=== PATIENT | female | born 1985 | race Two or more races ===

== ENCOUNTER → 2019-02-22 | Outpatient (REF) | payer OTHER | LOC: M SFHCLERA 09:55 | PROVIDERS: ATTEND Nurse Practitioner Family | DX: J02.9 Acute pharyngitis, unspecified (principal) ==

== ENCOUNTER → 2019-05-13 | Outpatient (REF) | LOC: M LAB 15:03 | PROVIDERS: ATTEND Nurse Practitioner Adult Health | DX: Z02.9 Encounter for administrative examinations, unspecified (principal) ==

== ENCOUNTER 2019-07-12 13:20 | Emergency (ER) | payer OTHER ==
[~2019-07-12] VITALS: Ht 157.5 cm; Wt 56.0 kg
[2019-07-12 13:20] VITALS: BP 107/63
[2019-07-12] MEDS ORDERED: ALL10TAB29 PO (13:43)
[2019-07-12] MEDS ORDERED: AUGM875T28 PO (13:59)
[2019-07-12] MEDS ORDERED: CLAR5TAB7 PO (13:59)
== END 2019-07-12 14:08 | disposition home or self-care (01) ==
LOC: M ED 13:20
DX: J01.90 Acute sinusitis, unspecified (principal); Z85.6 Personal history of leukemia; Z79.899 Other long term (current) drug therapy

== ENCOUNTER → 2020-07-14 | Outpatient (CLI) | payer OTHER ==
[~2020-07-14] MED LIST: AUGM875T28 PO; CETI-24 PO; CLAR5TAB7 PO
[2020-07-14 14:19] LABS: HEMATOCRIT 36.9 % (36.0-47.0); HEMOGLOBIN 12.1 g/dl (12.0-15.5); MEAN CORPUSCULAR HEMOGLOBIN 32.4 pg (27.0-33.0); MEAN CORPUSCULAR HGB CONC 32.8 g/dl (32.0-36.5); MEAN CORPUSCULAR VOLUME 98.9 fl (80.0-96.0); PLATELET COUNT, AUTOMATED 276 10^3/uL (150-450); RED BLOOD COUNT 3.73 10^6/uL (4.00-5.40)
[2020-07-14 14:22] LABS: WHITE BLOOD COUNT 9.8 10^3/uL (4.0-10.0)
[2020-07-14 14:59] LABS: ALBUMIN 4.1 GM/DL (3.2-5.2); ALT/SGPT 40 U/L (12-78); BILIRUBIN,TOTAL 0.3 MG/DL (0.2-1.0); BLOOD UREA NITROGEN 12 MG/DL (7-18); CALCIUM LEVEL 9.2 MG/DL (8.5-10.1); CARBON DIOXIDE LEVEL 30 MEQ/L (21-32); CHLORIDE LEVEL 106 MEQ/L (98-107); CREATININE FOR GFR 0.68 MG/DL (0.55-1.30); GLOMERULAR FILTRATION RATE > 60.0 (>60); GLUCOSE, FASTING 112 MG/DL (70-100); POTASSIUM SERUM 3.8 MEQ/L (3.5-5.1); SODIUM LEVEL 142 MEQ/L (136-145); TOTAL PROTEIN 7.2 GM/DL (6.4-8.2)
[2020-07-14 15:46] LABS: ATYPICAL LYMPH 7 % (0-5); BASOPHILS 1 % (0-1); EOSINOPHILS 2 % (0-3); LYMPHOCYTES 55 % (16-44); MONOCYTES 3 % (0-5); NEUTROPHILS 32 % (28-66); PLATELET ESTIMATE NORMAL (NORMAL)
== END ==
LOC: M LAB 13:36
PROVIDERS: ATTEND Physician Assistant
DX: J06.9 Acute upper respiratory infection, unspecified (principal); Z85.6 Personal history of leukemia

== ENCOUNTER → 2021-03-01 | Outpatient (CLI) | payer OTHER ==
[~2021-03-01] MED LIST changes: +CALC1TAB42 PO; +VITA500C24 PO; +[UNRECOGNIZED DRUG - OTHER] PO
--- NOTE | 2021-03-01 14:53 | REP ---
INDICATION: ENCOUNTER FOR SCREENING FOR RESPIRATORY TUBERCULOSIS. COMPARISON: None. TECHNIQUE: PA and lateral FINDINGS: The superior mediastinal structures are midline. The cardiac silhouette is unremarkable in size, shape, and position. The diaphragmatic surfaces of the lungs are regular, and the costophrenic angles are clear. The pulmonary salgado are clear. The imaged osseous structures are intact. Cardiomediastinal silhouette is within normal limits. There appear to be some bullous emphysematous changes in the lung apical regions. There is no evidence of a cavitary lesion or solid nodule. Lung salgado are somewhat hyperexpanded. The osseous structures are within normal limits. IMPRESSION: Evidence to suggest bullous emphysematous changes in the upper lung salgado as described above, however, there are no priors for comparison. CT examination the chest is recommended. <Electronically signed by Raimundo Spears > 03/01/21 [id number]
== END ==
LOC: M RAD 14:25
PROVIDERS: ATTEND Physician Assistant
DX: Z11.1 Encounter for screening for respiratory tuberculosis (principal); R91.8 Other nonspecific abnormal finding of lung field

== ENCOUNTER → 2021-03-29 | Outpatient (CLI) | payer OTHER ==
--- NOTE | 2021-03-29 09:28 | REP ---
INDICATION: ABN FINDINGS. COMPARISON: Chest x-ray 03/01/2021 TECHNIQUE: Noncontrast CT with coronal and sagittal reconstructions. FINDINGS: Lung salgado are hyperinflated. There is some curvilinear peripheral fibrotic appearance in the anterior segment right upper lobe. This slightly elevates the right hilum. There are cylindrical bronchiectatic changes throughout the lungs. Some curvilinear fibrotic change also seen in the medial segment right middle lobe and some linear fibrotic changes in both lower lobes also noted. No pleural effusion, dense consolidation with air bronchograms, discrete mass or calcified pleural plaques. No significant pulmonary nodules. Heart is not enlarged. There is no pericardial thickening or effusion. No pathologic sized mediastinal, hilar, axillary or supraclavicular mass. The aorta is without aneurysm. Submuscular breast implants noted bilaterally. Bone windows show no abnormality. Visualized upper abdomen shows a contracted gallbladder with densely calcified stones. No other significant findings in the upper abdomen. IMPRESSION: 1. Hyperinflation with COPD, cylindrical bronchiectatic change and scattered areas of curvilinear fibro atelectatic change in scarring greatest in the right upper lobe peripherally. This has some stranding towards the right hilum which is elevated because of it. No dense consolidation, pleural effusion, calcified pleural plaques, pulmonary nodule or other acute finding. There is some minor linear fibrotic changes in the bases. 2. There is no mediastinal or hilar pathologic sized adenopathy or mass. Heart size not enlarged. 3. No bony abnormalities in the chest. 4. Contracted gallbladder with some densely calcified stones within. No other significant finding <Electronically signed by Paco Cutler > 03/29/21 [id number]
== END ==
LOC: M RAD 08:34
PROVIDERS: ATTEND Physician Assistant
DX: R91.8 Other nonspecific abnormal finding of lung field (principal)

== ENCOUNTER → 2021-09-12 | Outpatient (CLI) | payer OTHER | LOC: M LAB 16:55 → M RAD 16:55 | PROVIDERS: ATTEND Physician Assistant | DX: J20.9 Acute bronchitis, unspecified (principal) ==

== ENCOUNTER → 2021-09-25 | Outpatient (REF) | payer OTHER | LOC: M LAB REF 16:43 | PROVIDERS: ATTEND Family Medicine | DX: B37.3 Candidiasis of vulva and vagina (principal) ==

== ENCOUNTER → 2022-08-13 | Outpatient (REF) | payer OTHER | LOC: M LAB REF 17:49 | PROVIDERS: ATTEND Family Medicine | DX: R30.0 Dysuria (principal) ==

== ENCOUNTER → 2023-02-25 | Outpatient (CLI) | payer OTHER ==
[~2023-02-25] MED LIST changes: +ACET-861 PO; +AZIT-12; +PRED20TA
== END ==
LOC: M RAD 15:13
PROVIDERS: ATTEND Family Medicine
DX: J06.9 Acute upper respiratory infection, unspecified (principal)

== ENCOUNTER → 2023-03-31 | Outpatient (CLI) | payer OTHER | LOC: M WHC 08:22 | PROVIDERS: ATTEND Family Medicine | DX: N95.0 Postmenopausal bleeding (principal) ==

== ENCOUNTER → 2023-04-03 | Outpatient (REF) | payer OTHER | LOC: M LAB REF 16:07 | PROVIDERS: ATTEND Physician Assistant | DX: B34.9 Viral infection, unspecified (principal) ==

== ENCOUNTER → 2023-10-28 | Outpatient (CLI) | payer OTHER ==
[2023-10-28 16:05] LABS: HEMOGLOBIN 12.7 g/dl (12.0-15.5); MEAN CORPUSCULAR HEMOGLOBIN 31.4 pg (27.0-33.0); MEAN CORPUSCULAR HGB CONC 32.6 g/dl (32.0-36.5); MEAN CORPUSCULAR VOLUME 96.5 fl (80.0-96.0); PLATELET COUNT, AUTOMATED 300 10^3/uL (150-450); RED BLOOD COUNT 4.04 10^6/uL (4.00-5.40); WHITE BLOOD COUNT 10.4 10^3/uL (4.0-10.0)
[2023-10-28 16:31] LABS: ALKALINE PHOSPHATASE 71 U/L (46-116); ALT/SGPT 18 U/L (7.0-40); AST/SGOT 11 U/L (<34); BILIRUBIN,TOTAL 0.4 MG/DL (0.3-1.2); BLOOD UREA NITROGEN 13 MG/DL (9-23); CALCIUM LEVEL 9.4 MG/DL (8.5-10.1); CARBON DIOXIDE LEVEL 31 MMOL/L (20-31); CHLORIDE LEVEL 102 MMOL/L (98-107); CHOLESTEROL LEVEL 196 MG/DL (<200); CHOLESTEROL RISK RATIO 4.06 (<5); GLOMERULAR FILTRATION RATE > 60.0 (>60); GLUCOSE, FASTING 74 MG/DL (60-100); HDL CHOLESTEROL 48.2 MG/DL (>40); LDL CHOLESTEROL 110.6 MG/DL (<100); NON-HDL-C 147.8 MG/DL; POTASSIUM SERUM 4.4 MMOL/L (3.5-5.1); SODIUM LEVEL 136 MMOL/L (136-145); TOTAL PROTEIN 7.2 G/DL (5.7-8.2); TRIGLYCERIDES LEVEL 186 MG/DL (<150)
[2023-10-28 16:33] LABS: FREE T4 1.05 NG/DL (0.89-1.76)
[2023-10-28 19:34] LABS: ANISOCYTOSIS 1+; ATYPICAL LYMPH 1 % (0-5); EOSINOPHILS 3 % (0-3); LYMPHOCYTES 49 % (16-44); MONOCYTES 7 % (0-5); NEUTROPHILS 40 % (28-66); PLATELET ESTIMATE NORMAL (NORMAL)
== END ==
LOC: M PLALAB 11:32
PROVIDERS: ATTEND Family Medicine
DX: Z13.29 Encounter for screening for other suspected endocrine disorder (principal); Z13.220 Encounter for screening for lipoid disorders; Z13.0 Encounter for screening for diseases of the blood and blood-forming organs and certain disorders involving the immune mechanism